=== PATIENT | male | born 1995 | race Two or more races ===

== ENCOUNTER 2023-05-07 18:20 | Emergency (ER) | payer BC, MEDICAID ==
[~2023-05-07] VITALS: Ht 170.2 cm; Wt 73.0 kg
[2023-05-07 19:00] VITALS: PULSE 74; RESP 14; O2SAT 100
[2023-05-07] MEDS: SODIUM CHLORIDE 0.9% 1,000 ML IV ONE (19:07)
[2023-05-07 19:12] LABS: Basophils # (auto) 0.1 10 ^3/uL (0-0.2); Basophils % (auto) 0.8 % (0.0-2.0); Eosinophils # (auto) 0.1 10 ^3/uL (0-0.8); Eosinophils % (auto) 0.5 % (0.0-7.0); Hematocrit 43.5 % (41.0-53.0); Hemoglobin 14.6 g/dL (13.5-17.5); Lymphocytes # (auto) 2.2 10 ^3/uL (0.4-5.4); Lymphocytes % (auto) 23.4 % (10.0-50.0); Mean Corpuscular Hemoglobin 29.5 pg (28.0-32.0); Mean Corpuscular Hgb Conc. 33.6 g/dL (32.0-36.0); Mean Corpuscular Volume 87.7 fL (80.0-100.0); Monocytes # (auto) 0.5 10 ^3/uL (0-1.3); Monocytes % (auto) 5.9 % (0.0-12.0); Neutrophils # (auto) 6.4 10 ^3/uL (1.6-8.6); Neutrophils % (auto) 69.4 % (37.0-80.0); Nucleated Red Blood Cells % 0.1 %; Red Blood Cells 4.96 10^6/uL (4.5-5.90); Red Cell Distribution Width 13.4 % (11.8-14.3); White Blood Cell 9.3 10^3/uL (4.4-10.8)
[2023-05-07 19:26] LABS: INR 1.11 (0.9-1.15); Partial Thromboplastin Time 24.5 SEC (24.5-34.5); Prothrombin Time 11.6 sec (9.3-11.8)
[2023-05-07] MEDS: ONDANSETRON HCL 4 MG/2 ML VIAL IV ONE (20:02)
[2023-05-07] MEDS: fentaNYL CITRATE 100 MCG/2 ML VL IV ONE (20:03)
[2023-05-07 20:10] LABS: Alanine Aminotransferase 22 U/L (7-40); Alkaline Phosphatase 52 U/L (46-116); Anion Gap 12 (5-15); Aspartate Aminotransferase 45 U/L (13-40); Blood Alcohol 35.2 mg/dL (<10); Blood Urea Nitrogen 6 mg/dL (9-23); Carbon Dioxide 22 mmol/L (20-30); Chloride 105 mmol/L (98-107); Glucose 75 mg/dL (74-106); Potassium 3.7 mmol/L (3.5-5.1); Sodium 139 mmol/L (136-145)
[2023-05-07 20:11] LABS: Albumin 4.1 g/dL (3.2-4.8); Bilirubin, Total 0.6 mg/dL (0.2-1.0); Total Protein 6.8 g/dL (5.7-8.2)
[2023-05-07] MEDS: AMPICILLIN & SULBACTAM SODIUM 3 GM in SODIUM CHL 0.9% 100 ML IV SCH (23:15)
[2023-05-07] MEDS: IOHEXOL 350 MG/ML 100ML IJ ONE (23:23)
[2023-05-07] MEDS: TETANUS-DIPTH-ACEL PERTUSSIS 0.5ML SYR Tdap IM ONE (23:35)
[2023-05-07] MEDS: cefTRIAXone 1GM/50ML D5W 50 ML IV ONE (23:41)
[2023-05-07 23:52] VITALS: PULSE 81; RESP 18; O2SAT 96
[2023-05-08 00:30] VITALS: BP 114/64; PULSE 88; RESP 23; TEMP 98.4; O2SAT 97
[2023-05-08 00:43] LABS: Amphetamine Screen, Urine Neg (NEGATIVE); Barbiturate Scree,Urine Neg (NEGATIVE); Benzodiazephine Screen, Urine Neg (NEGATIVE); Cocaine Screen, Urine Neg (NEGATIVE); Opiate Scree,Urine Neg (NEGATIVE)
[2023-05-08 00:44] LABS: Cannabinoid Screen, Urine Pos (NEGATIVE); Phencyclidine Screen, Urine Neg (NEGATIVE); Urine Bacteria NONE SEEN /hpf (None Seen); Urine Blood Negative /uL (Negative); Urine Clarity Clear (Clear); Urine Color Yellow (Yellow); Urine Mucus FEW (None Seen); Urine Protein, UAD TRACE (Negative); Urine Specific Gravity > 1.050 (1.001-1.035); Urine Urobilinogen Normal (Negative); Urine WBC 1 /hpf (0 - 3); Urine pH 5.5 (5.0-8.0)
== END 2023-05-08 00:46 | disposition short-term general hospital (02) ==
LOC: ER 18:20
DX: S92.352B Displaced fracture of fifth metatarsal bone, left foot, initial encounter for open fracture (principal); R51.9 Headache, unspecified; Z86.2 Personal history of diseases of the blood and blood-forming organs and certain disorders involving the immune mechanism; Z79.899 Other long term (current) drug therapy; V89.2XXA Person injured in unspecified motor-vehicle accident, traffic, initial encounter; Y93.89 Activity, other specified; Y92.89 Other specified places as the place of occurrence of the external cause; Y99.8 Other external cause status
CPT/HCPCS: 36415; 70450; 71260; 72125; 73590; 73610; 73630; 74177; 80053; 80307; 80320; 81001; 84484; 85025; 85610; 85730; 90471; 90715; 96361; 96365; 96375; 99285; J0696; J2405; J3010; J7030; Q9967